=== PATIENT | female | born 1985 | race American Indian/Alaskan Native ===

== ENCOUNTER 2016-12-13 00:15 | Emergency (ER) | payer OTHER ==
[2016-12-13 01:43] LABS: Basophils % (Auto) 0.4 % (0.0-1.8); Eosinophils % (Auto) 2.5 % (0.0-4.3); Hemoglobin 10.8 gm/dl (10.1-14.3); Mean Corpuscular HGB Conc 33 % (30-34); Mean Corpuscular Hemoglobin 27 pg (28-32); Mean Corpuscular Volume 82 fl (79-97); Platelet Count 237 K/mm3 (140-440); Red Blood Count 4.01 M/mm3 (3.65-5.03); Red Cell Distribution Width 13.6 % (13.2-15.2); White Blood Count 5.3 K/mm3 (4.5-11.0)
[2016-12-13 02:46] LABS: Alanine Aminotransferase 6 units/L (7-56); Albumin 4.1 g/dL (3.9-5); Alkaline Phosphatase 69 units/L (35-129); Chloride 103.5 mmol/L (98-107); Potassium 3.4 mmol/L (3.6-5.0); Sodium 141 mmol/L (137-145)
[2016-12-13 03:05] LABS: Bilirubin,Urine NEG (Negative); Blood,Urine NEG (Negative); Ketones,Urine NEG (Negative); Leukocyte Esterase,Urine NEG (Negative); Nitrite,Urine NEG (Negative); Protein,Urine <15 mg/dL mg/dL (Negative); RBC,Urine < 1.0 /HPF (0.0-6.0); Urobilinogen,Urine < 2.0 mg/dL (<2.0); WBC,Urine < 1.0 /HPF (0.0-6.0)
[2016-12-13 03:11] LABS: Albumin/Globulin Ratio 1.3 %; Anion Gap 15 mmol/L; BUN/Creatinine Ratio 11.11; Blood Urea Nitrogen 10 mg/dL (7-17); Calcium 8.8 mg/dL (8.4-10.2); Carbon Dioxide 26 mmol/L (22-30); Glucose 118 mg/dL (65-100); Lipase 25 units/L (13-60); Total Protein 7.2 g/dL (6.3-8.2)
[2016-12-13] MEDS ORDERED: NORCO 5/325 PO ONE (10:15)
[2016-12-13] MEDS ORDERED: TORADOL IM ONE (10:15)
--- NOTE | 2016-12-13 11:12 | Ultrasound Report ---
ULTRASOUND PELVIS COMPLETE - TRANSABDOMINAL AND TRANSVAGINAL: INDICATION: Pelvic pain. COMPARISON: None similar at this institution. FINDINGS: Transabdominal and transvaginal pelvic sonography performed in this patient with LMP of 11/19/2016 demonstrates a retroverted 13.1 x 4.2 x 5.9 cm uterus with at least 2 fibroids superiorly towards the fundus suspected on endovaginal images 16-18, the larger approximately 3.3 x 2.8 cm while the smaller is 2.1 x 1.7 cm. Echogenic endometrial stripe bilaminar thickness approximately 2 cm at the fundus, endovaginal image 9 appears somewhat asymmetrically greater anteriorly. Small amount of endometrial canal fluid also noted. No significant pelvic free fluid. Right ovary is 4.9 x 2.4 x 2.6 cm with numerous small peripheral follicles measuring 7 mm or smaller and greater than 5 in number. Left ovary unremarkable at 3.6 x 2.1 x 2.2 cm. CONCLUSION: 1. Myomatous uterus with nonspecific endometrial stripe thickening towards the fundus, somewhat asymmetric with subtle endometrial hyperplasia or polyp not entirely excluded at this time. 2. Both ovaries visualized. Please also correlate clinically. Sonographic followup in approximately 6 weeks or opposite phase of the menstrual cycle may also be considered for reassessment, as appropriate. Thank you for the opportunity to participate in this patient's care.
[2016-12-13] MEDS ORDERED: K-DUR PO ONE (11:37)
--- NOTE | 2016-12-13 11:39 | Emergency Department Report ---
ED Female HPI - General Chief complaint: Abdominal Pain Stated complaint: STOMACH PAIN FOR TWO WKS Time Seen by Provider: 12/13/16 10:00 Source: patient Mode of arrival: Ambulatory Limitations: No Limitations - History of Present Illness Initial comments: 30 yo female in no significant past medical history presents to the hospital complaining of suprapubic abdominal pain 1 week. Pain is sharp, crampy, and intermittent rated 10/10 intensity at times, worse with palpation. Pain improved with Kaopectate. Positive vaginal discharge. She denies nausea, vomiting, vaginal bleeding, fever, dysuria, melena, or hematochezia. - Related Data Previous Rx's Medication Instructions Recorded Last Taken Type HYDROcodone/APAP 5-325 [Kennedy 1 each PO Q6HR PRN #20 tablet 12/13/16 Unknown Rx 5/325] Ibuprofen [Motrin] 600 mg PO Q8H PRN #30 tablet 12/13/16 Unknown Rx Allergies Allergy/AdvReac Type Severity Reaction Status Date / Time No Known Allergies Allergy Verified 12/13/16 01:09 ED Review of Systems ROS: Stated complaint: STOMACH PAIN FOR TWO WKS Other details as noted in HPI Comment: All other systems reviewed and negative Other: Constitutional: No fevers chills Eyes: No eye pain visual changes ENT: No ear pain or throat pain Neck: Denies pain Respiratory: Denies cough wheezing shortness of breath Cardiovascular: Denies chest pain, palpitations, syncope GI: As per HPI : Denies dysuria Musculoskeletal: Denies back pain, joint swelling Skin: Denies rash, lesions, erythema Neurologic: Denies headache, numbness, weakness Psychiatric: Denies suicidal ideation, hallucinations ED Past Medical Hx - Past Medical History Previous Medical History?: No - Surgical History Past Surgical History?: No - Social History Smoking Status: Never Smoker Substance Use Type: None - Medications Home Medications: Home Medications Medication Instructions Recorded Confirmed Last Taken Type HYDROcodone/APAP 5-325 [Kennedy 1 each PO Q6HR PRN #20 tablet 12/13/16 Unknown Rx 5/325] Ibuprofen [Motrin] 600 mg PO Q8H PRN #30 tablet 12/13/16 Unknown Rx ED Physical Exam - General Limitations: No Limitations - Other Other exam information: General: No limitations, patient is alert in no acute distress Head exam: Atraumatic, normocephalic Eyes exam: Normal appearance, pupils equal reactive to light, extraocular movements intact ENT: Moist mucous membrane, normal oropharynx Neck exam: Normal inspection, full range of motion, no meningismus nontender Respiratory exam: Clear to auscultation bilateral, no wheezes, rales, crackles Cardiovascular: Normal rate and rhythm, normal heart sounds Abdomen: Soft, nondistended, suprapubic tenderness, with normal bowel sounds, no rebound, or guarding : No external lesions. Scant vaginal discharge, no CMT or adnexal tenderness Extremity: Full range of motion normal inspection no deformity Back: Normal Inspection, full range of motion, no tenderness Neurologic: Alert, oriented x3, cranial nerves intact, no motor or sensory deficit Psychiatric: normal affect, normal mood Skin: Warm, dry, intact ED Course Vital Signs 12/13/16 12/13/16 01:10 08:08 Temperature 98.8 F 98.6 F Pulse Rate 87 75 Respiratory 16 Rate Blood Pressure 146/96 Blood Pressure 125/76 [Left] O2 Sat by Pulse 100 99 Oximetry - Reevaluation(s) Reevaluation #1: 12/13/16 11:37 Patient given Toradol and Kennedy for pain ED Medical Decision Making - Lab Data Result diagrams: 12/13/16 01:18 12/13/16 01:18 Lab Results 12/13/16 12/13/16 12/13/16 Range/Units 01:18 01:18 02:49 WBC 5.3 (4.5-11.0) K/mm3 RBC 4.01 (3.65-5.03) M/mm3 Hgb 10.8 (10.1-14.3) gm/dl Hct 33.0 (30.3-42.9) % MCV 82 (79-97) fl MCH 27 L (28-32) pg MCHC 33 (30-34) % RDW 13.6 (13.2-15.2) % Plt Count 237 (140-440) K/mm3 Lymph % (Auto) 47.6 H (13.4-35.0) % Callahan % (Auto) 12.7 H (0.0-7.3) % Eos % (Auto) 2.5 (0.0-4.3) % Baso % (Auto) 0.4 (0.0-1.8) % Lymph # 2.5 (1.2-5.4) K/mm3 Callahan # 0.7 (0.0-0.8) K/mm3 Eos # 0.1 (0.0-0.4) K/mm3 Baso # 0.0 (0.0-0.1) K/mm3 Seg Neutrophils % 36.8 L (40.0-70.0) % Seg Neutrophils # 1.9 (1.8-7.7) K/mm3 Sodium 141 (137-145) mmol/L Potassium 3.4 L (3.6-5.0) mmol/L Chloride 103.5 (98-107) mmol/L Carbon Dioxide 26 (22-30) mmol/L Anion Gap 15 mmol/L BUN 10 (7-17) mg/dL Creatinine 0.9 (0.7-1.2) mg/dL Estimated GFR > 60 ml/min BUN/Creatinine Ratio 11.11 % Glucose 118 H (65-100) mg/dL Calcium 8.8 (8.4-10.2) mg/dL Total Bilirubin 0.20 (0.1-1.2) mg/dL AST 12 (5-40) units/L ALT 6 L (7-56) units/L Alkaline Phosphatase 69 (35-129) units/L Total Protein 7.2 (6.3-8.2) g/dL Albumin 4.1 (3.9-5) g/dL Albumin/Globulin Ratio 1.3 % Lipase 25 (13-60) units/L Urine Color Yellow (Yellow) Urine Turbidity Clear (Clear) Urine pH 6.0 (5.0-7.0) Ur Specific [place] 1.012 (1.003-1.030) Urine Protein <15 mg/dl (Negative) mg/dL Urine Glucose (UA) Neg (Negative) mg/dL Urine Ketones Neg (Negative) mg/dL Urine Blood Neg (Negative) Urine Nitrite Neg (Negative) Urine Bilirubin Neg (Negative) Urine Urobilinogen < 2.0 (<2.0) mg/dL Ur Leukocyte Esterase Neg (Negative) Urine WBC (Auto) < 1.0 (0.0-6.0) /HPF Urine RBC (Auto) < 1.0 (0.0-6.0) /HPF U Epithel Cells (Auto) 7.0 (0-13.0) /HPF Urine HCG, Qual (Negative) 12/13/16 Range/Units 02:49 WBC (4.5-11.0) K/mm3 RBC (3.65-5.03) M/mm3 Hgb (10.1-14.3) gm/dl Hct (30.3-42.9) % MCV (79-97) fl MCH (28-32) pg MCHC (30-34) % RDW (13.2-15.2) % Plt Count (140-440) K/mm3 Lymph % (Auto) (13.4-35.0) % [place]ahan % (Auto) (0.0-7.3) % Eos % (Auto) (0.0-4.3) % Baso % (Auto) (0.0-1.8) % Lymph # (1.2-5.4) K/mm3 [place]ahan # (0.0-0.8) K/mm3 Eos # (0.0-0.4) K/mm3 Baso # (0.0-0.1) K/mm3 Seg Neutrophils % (40.0-70.0) % Seg Neutrophils # (1.8-7.7) K/mm3 Sodium (137-145) mmol/L Potassium (3.6-5.0) mmol/L Chloride (98-107) mmol/L Carbon Dioxide (22-30) mmol/L Anion Gap mmol/L BUN (7-17) mg/dL Creatinine (0.7-1.2) mg/dL Estimated GFR ml/min BUN/Creatinine Ratio % Glucose (65-100) mg/dL Calcium (8.4-10.2) mg/dL Total Bilirubin (0.1-1.2) mg/dL AST (5-40) units/L ALT (7-56) units/L Alkaline Phosphatase (35-129) units/L Total Protein (6.3-8.2) g/dL Albumin (3.9-5) g/dL Albumin/Globulin Ratio % Lipase (13-60) units/L Urine Color (Yellow) Urine Turbidity (Clear) Urine pH (5.0-7.0) Ur Specific [place] (1.003-1.030) Urine Protein (Negative) mg/dL Urine Glucose (UA) (Negative) mg/dL Urine Ketones (Negative) mg/dL Urine Blood (Negative) Urine Nitrite (Negative) Urine Bilirubin (Negative) Urine Urobilinogen (<2.0) mg/dL Ur Leukocyte Esterase (Negative) Urine WBC (Auto) (0.0-6.0) /HPF Urine RBC (Auto) (0.0-6.0) /HPF U Epithel Cells (Auto) (0-13.0) /HPF Urine HCG, Qual Negative (Negative) - Radiology Data Radiology results: report reviewed Transvaginal/pelvic ultrasound: Fibroid uterus. Thickened endometrial stripe. Normal ovaries. No pelvic fluid. - Medical Decision Making Patient has a fibroid uterus which could be the cause of her discomfort. Gonorrhea and chlamydia pending at this time but wet prep is unremarkable. Was discharged home with [facility] follow-up and symptomatic treatment. No signs of or ectopic at this time. Patient also given by mouth potassium for mild hypokalemia. - Differential Diagnosis , fibroids, PID, cervicitis, UTI, dyspepsia Critical Care Time: No Critical care attestation.: If time is entered above; I have spent that time in minutes in the direct care of this critically ill patient, excluding procedure time. ED Disposition Clinical Impression: Fibroids, Lower abdominal pain, Hypokalemia Disposition: DISCHARGED TO HOME OR SELFCARE Is pt being admited?: No Does the pt Need Aspirin: No Condition: Stable Instructions: Uterine Fibroids (ED), Hypokalemia (ED) Additional Instructions: Ultrasound shows that you have fibroids in the uterus (copy of ultrasound provided). Follow-up with the [facility] doctor provided with a doctor of your choice. Take the medication as prescribed. The hydrocodone prescribed may cause constipation or drowsiness. Take stool softeners as needed and do not drive while taking this medication. Your gonorrhea and chlamydia tests are pending and take approximately 3-4 days result. You may obtain results in medical records with a photo ID. You may also obtain results through the follow -up doctor office via medical record request. Prescriptions: HYDROcodone/APAP 5-325 [Kennedy 5/325] 1 each PO Q6HR PRN #20 tablet PRN Reason: Pain Ibuprofen [Motrin] 600 mg PO Q8H PRN #30 tablet PRN Reason: Pain Referrals: MEGHAN SUERO MD [Staff Physician] - 3-5 Days Time of Disposition: 11:41
[2016-12-13 12:10] VITALS: BP 118/68
== END 2016-12-13 12:09 | disposition home or self-care (01) ==
LOC: ED 00:15
DX: D25.9 Leiomyoma of uterus, unspecified (principal); E87.6 Hypokalemia
CPT/HCPCS: 36415; 76830; 76856; 80053; 81001; 81025; 83690; 85025; 87210; 87591; 96372; 99284; J1885